=== PATIENT | male | born 1990 | race Caucasian/White ===

== ENCOUNTER 2019-04-22 14:35 | Emergency (ER) | payer MEDICAID ==
[~2019-04-22] VITALS: Ht 175.3 cm; Wt 95.3 kg
[2019-04-22 14:53] VITALS: BP 138/78
[2019-04-22] MEDS: NACL 0.9% 1,000 ML IV SCH ×2 (15:20→16:24)
[2019-04-22 15:31] LABS: APPEARANCE,URINE CLEAR (CLEAR); BASOPHILS % (AUTO) 0.6 % (0.0-2.0); BILIRUBIN,URINE NEGATIVE (NEGATIVE); BLOOD, URINE NEGATIVE (NEGATIVE); COLOR,URINE YELLOW (YELLOW); EOSINOPHILS # (AUTO) 0.1 K/uL (0-0.4); EOSINOPHILS % (AUTO) 1.8 % (0.0-4.0); HEMATOCRIT 41.7 % (36-52); HEMOGLOBIN 13.7 g/dL (12.0-18.0); LEUKOCYTE ESTERASE ,URINE NEGATIVE (NEGATIVE); LYMPHOCYTES # (AUTO) 1.1 K/uL (2.0-11.5); LYMPHOCYTES % (AUTO) 16.8 % (20.5-51.1); MEAN CORPUSCULAR HEMOGLOBIN 29 pg (27-31); MEAN CORPUSCULAR HGB CONC 33 g/dL (33-37); MEAN CORPUSCULAR VOLUME 87.6 fL (80-94); MONOCYTES # (AUTO) 0.4 K/uL (0.8-1.0); MONOCYTES % (AUTO) 5.8 % (1.7-9.3); NEUTROPHILS # (AUTO) 4.8 K/uL (1.8-7.7); NITRITE, URINE NEGATIVE (NEGATIVE); PLATELET COUNT (AUTO) 253 K/uL (140-450); RED BLOOD CELL COUNT(AUTO) 4.77 MIL/uL (4.20-6.10); RED CELL DISTRIBUTION WIDTH 13.9 % (11.6-13.7); UGLUCOSE 3+ (NEGATIVE); WHITE BLOOD COUNT (AUTO) 6.4 K/uL (4.8-10.8)
[2019-04-22 15:58] LABS: ACETONE, SERUM NEGATIVE (NEGATIVE)
[2019-04-22 16:11] LABS: ALBUMIN 3.9 g/dL (3.4-5.0); AMYLASE 83 U/L (25-115); ANION GAP 16.3 (8-16); ASPARTATE AMINOTRANSFERASE 75 U/L (15-37); CARBON DIOXIDE 26.2 mmol/L (21-32); CHLORIDE 95 mmol/L (98-107); CREATININE 1.1 mg/dL (0.7-1.3); GFR ARICAN-AMERICAN 102 mL/min (>90); LACTATE DEHYDROGENASE 201 U/L (85-227); LIPASE 82 U/L (73-393); POTASSIUM 5.5 mmol/L (3.5-5.1); SODIUM SERUM 132 mmol/L (136-145); TOTAL BILIRUBIN 1.2 mg/dL (0.0-1.0); UREA NITROGEN, BLOOD 11 mg/dL (7-18)
[2019-04-22 16:18] LABS: GLUCOSE 477 mg/dL (74-106)
[2019-04-22 16:39] VITALS: BP 131/74
== END 2019-04-22 16:39 | disposition left against medical advice (07) ==
LOC: MED 14:35
DX: E10.65 Type 1 diabetes mellitus with hyperglycemia (principal); R11.2 Nausea with vomiting, unspecified; Z76.0 Encounter for issue of repeat prescription; Z88.0 Allergy status to penicillin
CPT/HCPCS: 36415; 80053; 81003; 82009; 82150; 82948; 83615; 83690; 85025; 96360; 99283; J7030

== ENCOUNTER 2019-04-23 00:34 | Emergency (ER) | payer MEDICAID ==
[~2019-04-23] VITALS: Ht 177.8 cm; Wt 95.3 kg
[2019-04-23 00:40] VITALS: BP 150/80
--- NOTE | 2019-04-23 00:43 | NUR ---
TO LOBBY A/ W BED AMBULATORY
--- NOTE | 2019-04-23 02:09 | NUR ---
PT AMBULATED TO BED 4
[2019-04-23] MEDS ORDERED: INSULIN LISPRO 100 UNITS/ML VIAL SUBQ ONE (03:40)
[2019-04-23] MEDS ORDERED: INSULIN LANTUS 100 UNITS/ML 10 ML VIAL SUBQ ONE (03:40)
--- NOTE | 2019-04-23 03:44 | NUR ---
GAVE PT A SANDWICH PER ERMD REQUEST. PT TOLERATED WELL.
--- NOTE | 2019-04-23 04:00 | NUR ---
CAME IN WITH C/O HIGH BLOOD SUGAR FOR 3 DAYS. PATIENT ALERT AWAKE, ORIENTED , AMBULATORY
--- NOTE | 2019-04-23 04:05 | NUR ---
MEDICATED PER ERMDS ORDER.
--- NOTE | 2019-04-23 04:05 | NUR ---
PATIENT TOLERATED WELL.
[2019-04-23 04:43] VITALS: BP 135/72
--- NOTE | 2019-04-23 04:44 | NUR ---
Patient discharged with v/s stable. Written and verbal after care instructions given and explained. Patient alert, oriented and verbalized understanding of instructions. Ambulatory with steady gait. All questions addressed prior to discharge. ID band removed. Patient advised to follow up with PMD. Rx of LANTUS, HUMALOG given. Patient educated on indication of medication including possible reaction and side effects. Opportunity to ask questions provided and answered.
== END 2019-04-23 04:44 | disposition home or self-care (01) ==
LOC: MED 00:34
DX: E10.65 Type 1 diabetes mellitus with hyperglycemia (principal); Z88.0 Allergy status to penicillin
CPT/HCPCS: 96372; 99283; J1815